=== PATIENT | male | born 1995 | race African-American/Black ===

== ENCOUNTER 2022-06-26 15:14 | Emergency (ER) | payer MEDICAID ==
[~2022-06-26] VITALS: Ht 172.7 cm; Wt 80.0 kg
[2022-06-26 15:24] VITALS: BP 146/53
== END 2022-06-26 17:45 | disposition left against medical advice (07) ==
LOC: ER 15:14
DX: Z53.21 Procedure and treatment not carried out due to patient leaving prior to being seen by health care provider (principal)

== ENCOUNTER 2022-09-21 11:20 | Emergency (ER) | payer MEDICAID ==
[~2022-09-21] VITALS: Ht 185.4 cm; Wt 90.0 kg
[2022-09-21 11:52] VITALS: BP 126/57
[2022-09-21] MEDS: ACETAMINOPHEN 500MG TABLET PO NR ×4 (16:00→18:19)
[2022-09-21] MEDS ORDERED: AZIT250T PO (18:18)
== END 2022-09-21 17:20 | disposition home or self-care (01) ==
LOC: ER 11:20
DX: B34.9 Viral infection, unspecified (principal); Z90.81 Acquired absence of spleen; Z91.010 Allergy to peanuts
CPT/HCPCS: 71045; 99283